=== PATIENT | male | born 1940 | race Caucasian/White ===

== ENCOUNTER 2016-11-24 19:32 | Inpatient (IN) | payer MEDICARE ==
[~2016-11-24] VITALS: Ht 170.2 cm; Wt 83.5 kg
[2016-11-24] MEDS ORDERED: LORAZEPAM INJ 2 MG/ML VIAL ONE ×2 (20:49→21:37)
[2016-11-24] MEDS ORDERED: LORAZEPAM INJ 2 MG/ML VIAL IM ONE ×2 (21:00→22:00)
[2016-11-24 22:39] LABS: BASOPHILS % (AUTO) 0.3 % (0.0-2.0); DIFF TOTAL % 100 %; EOSINOPHILS # (AUTO) 0.1 /CMM (0.0-0.7); EOSINOPHILS % (AUTO) 1.7 % (0.0-6.0); HEMATOCRIT 39 % (39-51); HEMOGLOBIN 12.9 g/dL (13.5-17.5); LYMPHOCYTES % (AUTO) 23.8 % (20.0-44.0); MEAN CORPUSCULAR HEMOGLOBIN 32 PG (26.0-33.0); MEAN CORPUSCULAR HGB CONC 33 g/dl (31.0-36.0); MEAN CORPUSCULAR VOLUME 99 fL (80-96); MONOCYTES # (AUTO) 0.8 /CMM (0.1-1.30); MONOCYTES % (AUTO) 9.6 % (2.0-12.0); NEUTROPHILS # (AUTO) 5.6 /CMM (1.8-8.9); NEUTROPHILS % (AUTO) 64.6 % (43.0-81.0); PLATELET COUNT (AUTO) 237 /CMM (150-450); RED BLOOD CELL COUNT(AUTO) 3.98 MIL/uL (4.5-6.0); WHITE BLOOD COUNT (AUTO) 8.6 K/uL (4.3-11.0)
[2016-11-24] MEDS ORDERED: ARIP5TAB4 PO (22:44)
[2016-11-24 22:50] LABS: ANION GAP 7 (5-14); CALCIUM, SERUM 9.1 mg/dL (8.5-10.1); CARBON DIOXIDE 32 mmol/L (21-32); CHLORIDE 108 mmol/L (98-107); GLUCOSE 105 mg/dL (74-106); SODIUM SERUM 143 mmol/L (136-145); UREA NITROGEN, BLOOD 21 mg/dL (7-18)
[2016-11-24 22:53] LABS: TROPONIN I < 0.017 ng/mL (0.00-0.056)
[2016-11-24 22:59] LABS: THYROID STIMULATING HORMONE 2.826 uIU/mL (0.358-3.74)
[2016-11-25] MEDS ORDERED: MAG HYDROX/AL HYDROX/SIMETH 30 ML UDC PO PRN (03:00)
[2016-11-25] MEDS ORDERED: MAGNESIUM HYDROXIDE 30 ML UDC PO PRN (03:00)
[2016-11-25 03:03] VITALS: BP 115/88
[2016-11-25 08:00] VITALS: BP 112/77
[2016-11-25] MEDS ORDERED: QUET25TA PO (08:45)
[2016-11-25] MEDS ORDERED: Z GUARD REMEDY 2 OZ OINT TP PRN (13:30)
[2016-11-25 16:00] VITALS: BP 155/84
[2016-11-25] MEDS: QUETIAPINE FUMARATE 25 MG TABLET PO SCH (17:46)
[2016-11-25 20:00] VITALS: BP 130/77
[2016-11-26] MEDS: LORAZEPAM 0.5 MG TABLET PO PRN (03:08)
[2016-11-26 07:29] LABS: ALBUMIN 3.8 g/dL (3.4-5.0); BILIRUBIN,TOTAL 0.8 mg/dL (0.2-1.0); POTASSIUM 3.6 mmol/L (3.5-5.1); TOTAL PROTEIN, SERUM 7.6 g/dL (6.4-8.2)
[2016-11-26 08:00] VITALS: BP 143/79
[2016-11-26] MEDS: QUETIAPINE FUMARATE 25 MG TABLET PO SCH ×5 (10:01→21:51)
[2016-11-26] MEDS: HYDROCORTISONE 2.5% CREAM 28.4 GM TUBE TP SCH ×2 (10:02→17:45)
[2016-11-26 16:07] VITALS: BP 135/57
[2016-11-26 20:00] VITALS: BP 122/63
[2016-11-26] MEDS: TEMAZEPAM 7.5 MG CAPSULE PO PRN (21:51)
[2016-11-27 07:58] VITALS: BP 135/67
[2016-11-27] MEDS: HYDROCORTISONE 2.5% CREAM 28.4 GM TUBE TP SCH ×2 (09:25→17:48)
[2016-11-27] MEDS: QUETIAPINE FUMARATE 25 MG TABLET PO SCH ×3 (09:25→21:28)
[2016-11-27] MEDS: LORAZEPAM 0.5 MG TABLET PO PRN (09:48)
[2016-11-27 16:11] VITALS: BP 138/78
[2016-11-27 19:47] VITALS: BP 150/62
[2016-11-27] MEDS: TEMAZEPAM 7.5 MG CAPSULE PO PRN (21:29)
[2016-11-28] MEDS: LORAZEPAM 0.5 MG TABLET PO PRN (00:40)
[2016-11-28 08:00] VITALS: BP 137/72
[2016-11-28] MEDS: QUETIAPINE FUMARATE 25 MG TABLET PO SCH ×4 (09:22→21:08)
[2016-11-28] MEDS: HYDROCORTISONE 2.5% CREAM 28.4 GM TUBE TP SCH ×2 (09:25→17:39)
[2016-11-28 14:13] LABS: BASOPHILS # (AUTO) 0.1 /CMM (0.0-0.2); BASOPHILS % (AUTO) 0.8 % (0.0-2.0); DIFF TOTAL % 100 %; EOSINOPHILS # (AUTO) 0.2 /CMM (0.0-0.7); EOSINOPHILS % (AUTO) 2.1 % (0.0-6.0); HEMATOCRIT 43 % (39-51); HEMOGLOBIN 14.3 g/dL (13.5-17.5); LYMPHOCYTES # (AUTO) 1.9 /CMM (0.8-4.8); LYMPHOCYTES % (AUTO) 16.9 % (20.0-44.0); MEAN CORPUSCULAR HEMOGLOBIN 33 PG (26.0-33.0); MEAN CORPUSCULAR HGB CONC 33 g/dl (31.0-36.0); MEAN CORPUSCULAR VOLUME 98 fL (80-96); MONOCYTES # (AUTO) 0.8 /CMM (0.1-1.30); NEUTROPHILS # (AUTO) 8.1 /CMM (1.8-8.9); NEUTROPHILS % (AUTO) 73.2 % (43.0-81.0); PLATELET COUNT (AUTO) 261 /CMM (150-450); RED BLOOD CELL COUNT(AUTO) 4.42 MIL/uL (4.5-6.0)
[2016-11-28 14:28] LABS: ALBUMIN 3.6 g/dL (3.4-5.0); BILIRUBIN,TOTAL 0.7 mg/dL (0.2-1.0); CALCIUM, SERUM 9.1 mg/dL (8.5-10.1); CREATININE 0.9 mg/dL (0.6-1.3); TOTAL PROTEIN, SERUM 7.5 g/dL (6.4-8.2)
[2016-11-28] MEDS: UREA 10% -AHA 4% CREAM 57 GM TUBE TP SCH ×2 (15:00→17:40)
[2016-11-28 16:07] VITALS: BP 119/62
[2016-11-28 19:57] VITALS: BP 150/80
[2016-11-28] MEDS: TEMAZEPAM 7.5 MG CAPSULE PO PRN (21:08)
[2016-11-28] MEDS: ACETAMINOPHEN 325 MG TABLET PO PRN (21:09)
[2016-11-29 08:00] VITALS: BP 125/63
[2016-11-29] MEDS: QUETIAPINE FUMARATE 25 MG TABLET PO SCH ×3 (09:16→21:09)
[2016-11-29] MEDS: HYDROCORTISONE 2.5% CREAM 28.4 GM TUBE TP SCH ×2 (09:16→17:43)
[2016-11-29] MEDS: CLOTRIMAZOLE/BETAMETASONE DIPROPIONATE 15 GM TUBE TP SCH ×2 (09:17→17:43)
[2016-11-29] MEDS: UREA 10% -AHA 4% CREAM 57 GM TUBE TP SCH ×2 (09:18→17:43)
[2016-11-29] MEDS: NEOMY SULF/BACITRAC ZN/POLY 15 GM TUBE TP SCH (13:21)
[2016-11-29 16:00] VITALS: BP 157/90
[2016-11-29 20:01] VITALS: BP_SYST 139; BP_SYST 146; BP_DIAS 63; BP_DIAS 90
[2016-11-29] MEDS: TEMAZEPAM 7.5 MG CAPSULE PO PRN (21:10)
[2016-11-29] MEDS: ACETAMINOPHEN 325 MG TABLET PO PRN (21:11)
[2016-11-30 08:00] VITALS: BP 134/75
[2016-11-30] MEDS: UREA 10% -AHA 4% CREAM 57 GM TUBE TP SCH ×2 (09:26→18:02)
[2016-11-30] MEDS: QUETIAPINE FUMARATE 25 MG TABLET PO SCH (09:26)
[2016-11-30] MEDS: NEOMY SULF/BACITRAC ZN/POLY 15 GM TUBE TP SCH (09:27)
[2016-11-30] MEDS: CLOTRIMAZOLE/BETAMETASONE DIPROPIONATE 15 GM TUBE TP SCH ×2 (09:27→18:03)
[2016-11-30] MEDS: HYDROCORTISONE 2.5% CREAM 28.4 GM TUBE TP SCH ×2 (09:27→18:03)
[2016-11-30] MEDS: LORAZEPAM 0.5 MG TABLET PO PRN ×2 (09:33→23:58)
[2016-11-30 11:37] LABS: CHOLESTEROL 107 mg/dL (<200); TRIGLYCERIDES 87 mg/dL (30-150)
[2016-11-30 11:38] LABS: HDL CHOLESTEROL 29 mg/dL (40-60); LDL 74 mg/dL (0-99)
[2016-11-30 12:11] LABS: KETONES,URINE NEGATIVE (NEGATIVE); LEUKOCYTE ESTERASE ,URINE NEGATIVE (NEGATIVE); PH,URINE 5.5 (5.0-8.0)
[2016-11-30 12:14] LABS: ADD UA MICROSCOPIC YES
[2016-11-30 13:03] LABS: BASOPHILS % (AUTO) 0.6 % (0.0-2.0); DIFF TOTAL % 100 %; EOSINOPHILS # (AUTO) 0.4 /CMM (0.0-0.7); EOSINOPHILS % (AUTO) 5.3 % (0.0-6.0); HEMATOCRIT 42 % (39-51); LYMPHOCYTES % (AUTO) 14.2 % (20.0-44.0); MEAN CORPUSCULAR HEMOGLOBIN 33 PG (26.0-33.0); MEAN CORPUSCULAR HGB CONC 33 g/dl (31.0-36.0); MEAN CORPUSCULAR VOLUME 99 fL (80-96); MONOCYTES # (AUTO) 0.6 /CMM (0.1-1.30); MONOCYTES % (AUTO) 8.2 % (2.0-12.0); NEUTROPHILS # (AUTO) 5.1 /CMM (1.8-8.9); NEUTROPHILS % (AUTO) 71.7 % (43.0-81.0); PLATELET COUNT (AUTO) 265 /CMM (150-450); RED BLOOD CELL COUNT(AUTO) 4.26 MIL/uL (4.5-6.0); WHITE BLOOD COUNT (AUTO) 7.2 K/uL (4.3-11.0)
[2016-11-30 13:06] LABS: ADD URINE CULTURE YES
[2016-11-30 13:07] LABS: MUCUS,URINE Moderate /LPF (None Seen)
[2016-11-30 13:13] LABS: BILIRUBIN,TOTAL 0.6 mg/dL (0.2-1.0); CALCIUM, SERUM 9.3 mg/dL (8.5-10.1); POTASSIUM 4.1 mmol/L (3.5-5.1)
[2016-11-30 16:01] VITALS: BP 140/76
[2016-11-30] MEDS: OLANZAPINE 5 MG/TAB.RAPDIS PO SCH (18:10)
[2016-11-30 20:02] VITALS: BP 115/58
[2016-11-30] MEDS: ACETAMINOPHEN 325 MG TABLET PO PRN (21:13)
[2016-11-30] MEDS: TEMAZEPAM 7.5 MG CAPSULE PO PRN ×2 (21:13→22:46)
[2016-11-30] MEDS: OLANZAPINE 5 MG/TAB.RAPDIS PO PRN (23:59)
[2016-12-01] MEDS: UREA 10% -AHA 4% CREAM 57 GM TUBE TP SCH ×2 (08:22→18:20)
[2016-12-01] MEDS: HYDROCORTISONE 2.5% CREAM 28.4 GM TUBE TP SCH ×2 (08:23→18:19)
[2016-12-01] MEDS: CLOTRIMAZOLE/BETAMETASONE DIPROPIONATE 15 GM TUBE TP SCH ×2 (08:23→18:19)
[2016-12-01] MEDS: NEOMY SULF/BACITRAC ZN/POLY 15 GM TUBE TP SCH (08:23)
[2016-12-01 08:54] VITALS: BP 114/60
[2016-12-01] MEDS: OLANZAPINE 5 MG/TAB.RAPDIS PO SCH ×2 (09:32→18:18)
[2016-12-01 16:00] VITALS: BP 110/65
[2016-12-01 20:00] VITALS: BP 128/53
[2016-12-01] MEDS: DIVALPROEX SODIUM 125 MG CAP.SPRINK PO SCH (21:36)
[2016-12-01] MEDS: LORAZEPAM 0.5 MG TABLET PO PRN (21:36)
[2016-12-01] MEDS: TEMAZEPAM 7.5 MG CAPSULE PO PRN (23:02)
[2016-12-02] MEDS: OLANZAPINE 5 MG/TAB.RAPDIS PO PRN (00:13)
[2016-12-02 08:00] VITALS: BP 124/62
[2016-12-02] MEDS: OLANZAPINE 5 MG/TAB.RAPDIS PO SCH ×3 (09:04→17:10)
[2016-12-02] MEDS: DIVALPROEX SODIUM 125 MG CAP.SPRINK PO SCH ×2 (09:04→21:05)
[2016-12-02] MEDS: CLOTRIMAZOLE/BETAMETASONE DIPROPIONATE 15 GM TUBE TP SCH ×2 (09:05→17:11)
[2016-12-02] MEDS: NEOMY SULF/BACITRAC ZN/POLY 15 GM TUBE TP SCH (09:05)
[2016-12-02] MEDS: HYDROCORTISONE 2.5% CREAM 28.4 GM TUBE TP SCH ×2 (09:06→17:11)
[2016-12-02] MEDS: UREA 10% -AHA 4% CREAM 57 GM TUBE TP SCH ×2 (09:06→17:11)
[2016-12-02 16:00] VITALS: BP 127/81
[2016-12-02] MEDS: LORAZEPAM 0.5 MG TABLET PO PRN (17:14)
[2016-12-02] MEDS: TEMAZEPAM 7.5 MG CAPSULE PO PRN (21:08)
[2016-12-03 08:00] VITALS: BP 105/59
[2016-12-03] MEDS: CLOTRIMAZOLE/BETAMETASONE DIPROPIONATE 15 GM TUBE TP SCH ×2 (08:38→17:07)
[2016-12-03] MEDS: NEOMY SULF/BACITRAC ZN/POLY 15 GM TUBE TP SCH (08:38)
[2016-12-03] MEDS: UREA 10% -AHA 4% CREAM 57 GM TUBE TP SCH ×2 (08:38→17:06)
[2016-12-03] MEDS: HYDROCORTISONE 2.5% CREAM 28.4 GM TUBE TP SCH ×2 (08:39→17:06)
[2016-12-03] MEDS: DIVALPROEX SODIUM 125 MG CAP.SPRINK PO SCH ×2 (08:43→22:06)
[2016-12-03] MEDS: OLANZAPINE 5 MG/TAB.RAPDIS PO SCH ×3 (08:43→17:00)
[2016-12-03] MEDS: HYDROGEL DRESSING 90 GM TUBE TP SCH (12:12)
[2016-12-03 16:04] VITALS: BP 119/76
[2016-12-03 21:09] VITALS: BP 144/57
[2016-12-03] MEDS: TEMAZEPAM 7.5 MG CAPSULE PO PRN (22:13)
[2016-12-04 08:00] VITALS: BP 116/56
[2016-12-04] MEDS: DIVALPROEX SODIUM 125 MG CAP.SPRINK PO SCH ×2 (09:29→21:54)
[2016-12-04] MEDS: OLANZAPINE 5 MG/TAB.RAPDIS PO SCH ×3 (09:29→17:01)
[2016-12-04] MEDS: HYDROCORTISONE 2.5% CREAM 28.4 GM TUBE TP SCH ×2 (09:46→17:01)
[2016-12-04] MEDS: HYDROGEL DRESSING 90 GM TUBE TP SCH (09:46)
[2016-12-04] MEDS: UREA 10% -AHA 4% CREAM 57 GM TUBE TP SCH ×2 (09:47→17:01)
[2016-12-04] MEDS: CLOTRIMAZOLE/BETAMETASONE DIPROPIONATE 15 GM TUBE TP SCH ×2 (09:47→17:01)
[2016-12-04] MEDS: NEOMY SULF/BACITRAC ZN/POLY 15 GM TUBE TP SCH (09:47)
[2016-12-04 16:00] VITALS: BP 110/59
[2016-12-04 19:54] VITALS: BP 139/75
[2016-12-04] MEDS ORDERED: LOPERAMIDE HCL (2 MG CAP) 2 MG CAPSULE PO PRN (20:00)
[2016-12-04] MEDS: TEMAZEPAM 7.5 MG CAPSULE PO PRN (21:54)
[2016-12-04] MEDS ORDERED: LOPERAMIDE HCL (2 MG CAP) 2 MG CAPSULE PO ONE (22:31)
[2016-12-05 07:17] LABS: BASOPHILS % (AUTO) 0.1 % (0.0-2.0); DIFF TOTAL % 100 %; EOSINOPHILS # (AUTO) 0.3 /CMM (0.0-0.7); EOSINOPHILS % (AUTO) 2.2 % (0.0-6.0); HEMATOCRIT 39 % (39-51); HEMOGLOBIN 13.2 g/dL (13.5-17.5); LYMPHOCYTES # (AUTO) 1.5 /CMM (0.8-4.8); LYMPHOCYTES % (AUTO) 13.1 % (20.0-44.0); MEAN CORPUSCULAR HEMOGLOBIN 34 PG (26.0-33.0); MEAN CORPUSCULAR HGB CONC 34 g/dl (31.0-36.0); MEAN CORPUSCULAR VOLUME 100 fL (80-96); MONOCYTES # (AUTO) 0.9 /CMM (0.1-1.30); MONOCYTES % (AUTO) 8.1 % (2.0-12.0); NEUTROPHILS # (AUTO) 8.9 /CMM (1.8-8.9); NEUTROPHILS % (AUTO) 76.5 % (43.0-81.0); PLATELET COUNT (AUTO) 252 /CMM (150-450); RED BLOOD CELL COUNT(AUTO) 3.94 MIL/uL (4.5-6.0); WHITE BLOOD COUNT (AUTO) 11.6 K/uL (4.3-11.0)
[2016-12-05 07:33] LABS: CALCIUM, SERUM 9.3 mg/dL (8.5-10.1); POTASSIUM 3.3 mmol/L (3.5-5.1)
[2016-12-05 08:00] VITALS: BP 128/54
[2016-12-05] MEDS: DIVALPROEX SODIUM 125 MG CAP.SPRINK PO SCH (08:21)
[2016-12-05] MEDS: OLANZAPINE 5 MG/TAB.RAPDIS PO SCH ×3 (08:21→17:00)
[2016-12-05] MEDS: UREA 10% -AHA 4% CREAM 57 GM TUBE TP SCH ×2 (10:26→16:40)
[2016-12-05] MEDS: HYDROCORTISONE 2.5% CREAM 28.4 GM TUBE TP SCH ×2 (10:26→16:40)
[2016-12-05] MEDS: NEOMY SULF/BACITRAC ZN/POLY 15 GM TUBE TP SCH (10:26)
[2016-12-05] MEDS: CLOTRIMAZOLE/BETAMETASONE DIPROPIONATE 15 GM TUBE TP SCH ×2 (10:28→16:40)
[2016-12-05 16:00] VITALS: BP 143/65
[2016-12-05] MEDS ORDERED: OLANZAPINE 5 MG/TAB.RAPDIS PO SCH (17:00)
[2016-12-05 20:35] VITALS: BP 137/58
[2016-12-05] MEDS ORDERED: LORAZEPAM INJ 2 MG/ML VIAL IVP ONE (21:00)
[2016-12-05] MEDS ORDERED: LORAZEPAM INJ 2 MG/ML VIAL ONE (21:56)
[2016-12-05] MEDS ORDERED: LORAZEPAM INJ 2 MG/ML VIAL IV ONE (22:00)
[2016-12-05] MEDS ORDERED: IV NS 0.9% 250 ML IV ONE (22:42)
[2016-12-05] MEDS ORDERED: IOHEXOL-350 100 ML VIAL IV ONE (22:42)
[2016-12-06] MEDS: DIVALPROEX SODIUM 125 MG CAP.SPRINK PO SCH ×3 (00:36→21:24)
[2016-12-06 08:00] VITALS: BP 134/66
[2016-12-06 08:00] LABS: WHITE BLOOD COUNT (AUTO) 8.6 K/uL (4.3-11.0)
[2016-12-06 08:01] LABS: BASOPHILS % (AUTO) 0.2 % (0.0-2.0); DIFF TOTAL % 100 %; EOSINOPHILS # (AUTO) 0.2 /CMM (0.0-0.7); EOSINOPHILS % (AUTO) 2.4 % (0.0-6.0); HEMATOCRIT 42 % (39-51); HEMOGLOBIN 13.5 g/dL (13.5-17.5); LYMPHOCYTES # (AUTO) 1.4 /CMM (0.8-4.8); MEAN CORPUSCULAR HEMOGLOBIN 32 PG (26.0-33.0); MEAN CORPUSCULAR HGB CONC 33 g/dl (31.0-36.0); MEAN CORPUSCULAR VOLUME 99 fL (80-96); MONOCYTES # (AUTO) 0.7 /CMM (0.1-1.30); MONOCYTES % (AUTO) 8.2 % (2.0-12.0); NEUTROPHILS # (AUTO) 6.3 /CMM (1.8-8.9); NEUTROPHILS % (AUTO) 73.2 % (43.0-81.0); PLATELET COUNT (AUTO) 250 /CMM (150-450); RED BLOOD CELL COUNT(AUTO) 4.17 MIL/uL (4.5-6.0)
[2016-12-06 08:09] LABS: ALBUMIN 3.1 g/dL (3.4-5.0); BILIRUBIN,TOTAL 0.7 mg/dL (0.2-1.0); CREATININE 1.1 mg/dL (0.6-1.3); POTASSIUM 4.3 mmol/L (3.5-5.1); TOTAL PROTEIN, SERUM 7.2 g/dL (6.4-8.2)
[2016-12-06] MEDS: POTASSIUM CHLORIDE 20 MEQ TAB.PRT.SR PO SCH (09:25)
[2016-12-06] MEDS: UREA 10% -AHA 4% CREAM 57 GM TUBE TP SCH ×2 (09:25→17:44)
[2016-12-06] MEDS: HYDROCORTISONE 2.5% CREAM 28.4 GM TUBE TP SCH ×2 (09:26→17:45)
[2016-12-06] MEDS: CLOTRIMAZOLE/BETAMETASONE DIPROPIONATE 15 GM TUBE TP SCH ×2 (09:26→17:45)
[2016-12-06] MEDS: NEOMY SULF/BACITRAC ZN/POLY 15 GM TUBE TP SCH (09:27)
[2016-12-06 16:00] VITALS: BP 140/90
[2016-12-06] MEDS: OLANZAPINE 5 MG/TAB.RAPDIS PO SCH (17:44)
[2016-12-06 19:55] VITALS: BP 136/51
[2016-12-06] MEDS: TEMAZEPAM 7.5 MG CAPSULE PO PRN ×2 (21:24→22:38)
[2016-12-07 08:29] VITALS: BP 141/81
[2016-12-07] MEDS: POTASSIUM CHLORIDE 20 MEQ TAB.PRT.SR PO SCH (09:20)
[2016-12-07] MEDS: DIVALPROEX SODIUM 125 MG CAP.SPRINK PO SCH ×2 (09:20→20:31)
[2016-12-07] MEDS: UREA 10% -AHA 4% CREAM 57 GM TUBE TP SCH ×2 (09:20→16:58)
[2016-12-07] MEDS: CLOTRIMAZOLE/BETAMETASONE DIPROPIONATE 15 GM TUBE TP SCH ×2 (09:20→16:58)
[2016-12-07] MEDS: HYDROCORTISONE 2.5% CREAM 28.4 GM TUBE TP SCH ×2 (09:21→16:58)
[2016-12-07] MEDS: NEOMY SULF/BACITRAC ZN/POLY 15 GM TUBE TP SCH (09:21)
[2016-12-07] MEDS: OLANZAPINE 5 MG/TAB.RAPDIS PO SCH (16:57)
[2016-12-07 20:27] VITALS: BP 133/86
[2016-12-07] MEDS: MIRTAZAPINE 15 MG TABLET PO SCH (21:35)
[2016-12-07] MEDS: TEMAZEPAM 7.5 MG CAPSULE PO PRN (22:38)
[2016-12-07] MEDS: ACETAMINOPHEN 325 MG TABLET PO PRN (23:56)
[2016-12-07] MEDS: OLANZAPINE 5 MG/TAB.RAPDIS PO PRN (23:56)
[2016-12-08 08:29] VITALS: BP 120/51
[2016-12-08] MEDS: POTASSIUM CHLORIDE 20 MEQ TAB.PRT.SR PO SCH (09:00)
[2016-12-08] MEDS: DIVALPROEX SODIUM 125 MG CAP.SPRINK PO SCH ×2 (09:00→21:55)
[2016-12-08] MEDS: NEOMY SULF/BACITRAC ZN/POLY 15 GM TUBE TP SCH ×2 (09:22→16:52)
[2016-12-08] MEDS: HYDROCORTISONE 2.5% CREAM 28.4 GM TUBE TP SCH ×2 (09:23→16:53)
[2016-12-08] MEDS: CLOTRIMAZOLE/BETAMETASONE DIPROPIONATE 15 GM TUBE TP SCH ×2 (09:23→16:52)
[2016-12-08] MEDS: UREA 10% -AHA 4% CREAM 57 GM TUBE TP SCH ×2 (09:31→16:52)
[2016-12-08] MEDS: LORAZEPAM 0.5 MG TABLET PO PRN (14:42)
[2016-12-08 16:00] VITALS: BP 130/59
[2016-12-08] MEDS: OLANZAPINE 5 MG/TAB.RAPDIS PO SCH (16:51)
[2016-12-08 20:00] VITALS: BP 120/54
[2016-12-08] MEDS: MIRTAZAPINE 15 MG TABLET PO SCH (21:55)
[2016-12-09] MEDS: TEMAZEPAM 7.5 MG CAPSULE PO PRN (00:14)
[2016-12-09 08:48] VITALS: BP 147/68
[2016-12-09] MEDS: DIVALPROEX SODIUM 125 MG CAP.SPRINK PO SCH (09:08)
[2016-12-09] MEDS: UREA 10% -AHA 4% CREAM 57 GM TUBE TP SCH (09:08)
[2016-12-09] MEDS: CLOTRIMAZOLE/BETAMETASONE DIPROPIONATE 15 GM TUBE TP SCH (09:09)
[2016-12-09] MEDS: HYDROCORTISONE 2.5% CREAM 28.4 GM TUBE TP SCH (09:09)
== END 2016-12-09 12:45 | DRG 885 ==
LOC: ER 19:34 → GPS 11-25 01:16
PROVIDERS: ADMIT Psychiatry & Neurology Psychosomatic Medicine; ATTEND Internal Medicine
DX: F29 Unspecified psychosis not due to a substance or known physiological condition (principal); F02.80 Dementia in other diseases classified elsewhere, unspecified severity, without behavioral disturbance, psychotic disturbance, mood disturbance, and anxiety; G30.9 Alzheimer's disease, unspecified; F32.9 Major depressive disorder, single episode, unspecified; F41.9 Anxiety disorder, unspecified; B35.1 Tinea unguium
CPT/HCPCS: 36415; 70450-TC; 70496-TC; 71010-TC; 80048-TC; 80053-TC; 80061-TC; 81000-TC; 83735-TC; 84443-TC; 84484-TC; 85025-TC; 87081-TC; 87086-TC; 93970-TC; 97001-TC; 97530-TC; A4606; A6248; G0480; J2060; J7050; Q9967; Z7610